=== PATIENT | female | born 2000 | race African-American/Black ===

== ENCOUNTER 2019-09-06 23:11 | Emergency (ER) | payer BC, MEDICAID, SELFPAY ==
[2019-09-06 23:13] VITALS: BP 135/59; PULSE 94; RESP 19; TEMP 36.6; O2SAT 100
[2019-09-06 23:18] VITALS: BP 138/59; PULSE 94; RESP 16; TEMP 36.6; O2SAT 100
[2019-09-07] MEDS: HYDROMORPHONE HCL 1 MG/ML INJ IM (00:21)
[2019-09-07] MEDS: ONDANSETRON HCL ODT 4 MG TABLET PO (00:22)
[2019-09-07] MEDS: LIDO 1%/EPINEPHRINE 1:100,000 20 ML VIAL INFILTRATE (00:34)
--- NOTE | 2019-09-07 01:17 | ED.WOUNDLAC ---
HPI - Wound/Laceration General Chief Complaint: Wound/Laceration Stated Complaint: boil Time Seen by Provider: 09/06/19 23:59 Source: patient Mode of arrival: ambulatory Limitations: no limitations History of Present Illness HPI narrative: This patient is a 19 yo female with h/o pilondial cyst who presents with c/o left buttock boil. She noticed pain and swelling to left buttock on Wednesday . She was seen at Urgent care on Wednesday and she was started on antibiotics . She was seen by her PCP who prescribed a topical. PAtient has continued to have significant pain and swelling so she has come to ER. She denies nausea, vomiting, fever or chills. She has no drainage. Related Data Allergies Allergy/AdvReac Type Severity Reaction Status Date / Time No Known Drug Allergies Allergy Unknown Other Verified 09/06/19 23:24 Review of Systems Review of Systems: All systems reviewed & are unremarkable except as noted in HPI and below Constitutional: Constitutional: Denies chills, Denies fever(s) and Denies weakness Gastrointestinal: Gastrointestinal: Denies nausea PMFSH Past Medical History Medical History (Updated 09/07/19 @ 01:27 by Stacy French MD) Pilonidal cyst Surgical History Surgical History (Updated 09/07/19 @ 01:22 by Stacy French MD) History of knee surgery Social History Social History Gender identity (if verbalized by the patient): Female Exam Const: General: alert Orientation/consciousness: patient oriented x3 Limitations: other limitations (moderated distress due to pain) HENMT: Head: normocephalic and atraumatic Eyes: EOM: EOMs intact bilaterally Resp: Effort & Inspection: normal respiratory effort Auscultation: clear to auscultation bilaterally Cardio: Rate: regular rate Rhythm: regular rhythm Skin: Other: left crease of buttock with area 3 x 5 cm tenderness, swelling and fluctuance, no drainage, no erythema Neuro: General: patient oriented x3 and moves all extremities Course Reevaluation(s) Reevaluation #1: Patient states she feels better after I and D. I Discussed discharge plan and treatment. She will continue on her antibiotics. Date: 09/07/19 Time: 01:24 Vital Signs Vital signs: Vital Signs Temperature 97.8 F 09/06/19 23:13 Pulse Rate 94 09/06/19 23:13 Respiratory Rate 19 09/06/19 23:13 Blood Pressure 135/59 L 09/06/19 23:13 Pulse Oximetry 100 09/06/19 23:13 Temperature 98.2 F 09/07/19 02:21 Pulse Rate 71 09/07/19 02:21 Respiratory Rate 18 09/07/19 02:21 Blood Pressure 128/71 09/07/19 02:21 Pulse Oximetry 99 09/07/19 02:21 Procedures Abscess I/D left buttock: Date of Incision: 09/07/19 Time of Incision: 01:25 Side (if applicable): left Local Anesthetic: lidocaine 1%, with epi and none (LET) Amount of anesthesia used (mL): 5 Technique: incised with #11 blade and probed loculations Amount of fluid expressed (mL): 5 Irrigation: Yes Packing used?: iodoform I&D Results: Pus and Blood Complications: pain Abcess I&D Additional Comments: swelling decreased significantly after I and D Discharge Plan Discharge Clinical Impression: Sacrococcygeal pilonidal cyst with abscess Patient Disposition: Home, Self-Care Condition: Stable Instructions: Antibiotic Form, Pilonidal Cyst (ED), Abscess Incision and Drainage (DC) Additional Instructions: Today you were evaluated for a infected cyst. Your packing will need to be removed in 3 days. Continue taking your antibiotics. Prescriptions: New hydrocodone-acetaminophen 5-325 mg tablet 1 tablet PO Q6H PRN (Reason: pain) Qty: 7 RF: 0 Follow-up/Referrals: Jimmy Sanderson MD [Physician] - Caden,MD Usama [Primary Care Provider] - Stand Alone Forms: Work/School Release IP Discharge Date/Time: 09/07/19 02:23
[2019-09-07 02:21] VITALS: BP 128/71; PULSE 71; RESP 18; TEMP 36.8; O2SAT 99
== END 2019-09-07 02:23 | disposition home or self-care (01) ==
PROVIDERS: Emergency Provider General Practice; PCP Pediatrics
DX: L05.01 Pilonidal cyst with abscess (principal)
CPT/HCPCS: 10080; 96372; 99283; A9270; J1170

== ENCOUNTER 2020-05-01 16:52 | Emergency (ER) | payer BC, MEDICAID, OTHER, SELFPAY ==
--- NOTE | ~2020-05-01 | XR_ITS ---
EXAMINATION: XR tibia fibula LT 2V INDICATION: Left leg pain TECHNIQUE: Two views of the left tibia and fibula are obtained on four radiographs. COMPARISON: None available FINDINGS: Intramedullary riri is present in the tibia. There is no acute fracture, dislocation, or sub luxation. Bone alignment at the knee and ankle is normal. IMPRESSION: 1. No acute osseous abnormality. Reviewed, dictated and finalized at location A. [employer]
[2020-05-01 17:38] VITALS: BP 122/68; PULSE 90; RESP 16; TEMP 36.6; O2SAT 100
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
== END 2020-05-01 18:26 | disposition home or self-care (01) ==
PROVIDERS: Emergency Provider Emergency Medicine; PCP Pediatrics
DX: S16.1XXA Strain of muscle, fascia and tendon at neck level, initial encounter (principal); V49.60XA Unspecified car occupant injured in collision with unspecified motor vehicles in traffic accident, initial encounter
CPT/HCPCS: 73590; 81025; 99283

== ENCOUNTER 2020-10-04 22:28 | Emergency (ER) | payer BC, MEDICAID, SELFPAY ==
[2020-10-04 22:30] VITALS: BP 125/74; PULSE 96; RESP 12; TEMP 37.6; O2SAT 100
[2020-10-04 22:44] VITALS: BP 115/72; PULSE 96; RESP 18; TEMP 37.9; O2SAT 100
[2020-10-04 22:49] VITALS: BP 115/72; PULSE 95; RESP 18; TEMP 37.9; O2SAT 100
--- NOTE | 2020-10-04 22:56 | PC.NURSE ---
Pt presents to ED with complaints of cold symptoms since yesterday. Pt states mom is a sick contact. Pt complaining of abdominal pain, sore throat, and stuffy nose. Pt also complains of chills. Generalized pain rated 6/10 at this time. Denies chest pain, sob, fever, and nvd. Pt alert and oriented x4 and in no obvious distress with stable vitals. Pt states she has been taking amoxicillin, dayquil and nyquil to treat symptoms. Pt resting on cart with call button and personal items within reach. Pt advised to press call button for assistance.
--- NOTE | 2020-10-04 23:22 | PC.NURSE ---
Pt resting on cart with stable vitals and in no obvious distress. Pt alert and oriented x4 and advised to press call button for assistance.
--- NOTE | 2020-10-04 23:40 | PC.NURSE ---
Blood and covid specimens collected and sent to lab. Pt resting on cart in its lowest position with call button and personal items within reach. Pt advised to press call button for assistance.
--- NOTE | 2020-10-04 23:41 | ED.URI ---
HPI - URI/Sore Throat General Chief Complaint: Upper Respiratory Infection Stated Complaint: I have a cold or something Time Seen by Provider: 10/04/20 22:49 Mode of arrival: ambulatory Limitations: no limitations History of Present Illness HPI Narrative: 20-year-old female Here with a number of complaints Including stuffy nose, feeling cold, scratchy throat, achiness, ear fullness, as well as constipation She does not have a fever or productive cough, she does not have urinary symptoms, she does not have diarrhea Her mom is sick with similar symptoms Patient has not received a Covid vaccination Related Data Home Medications Medication Instructions Recorded Confirmed lisdexamfetamine [Vyvanse] mg 05/01/20 oxycodone-acetaminophen 05/01/20 Allergies Allergy/AdvReac Type Severity Reaction Status Date / Time No Known Drug Allergies Allergy Unknown Other Verified 05/01/20 17:47 Review of Systems Review of Systems: All systems reviewed & are unremarkable except as noted in HPI and below Constitutional: Constitutional: Reports chills, Reports fatigue and Denies headache(s) Eyes: Eyes: Reports no additional eye complaints and Denies change in vision ENT: Denies headache(s), Reports nasal congestion and Reports sore throat Cardiovascular: Cardiovascular: Denies chest pain and Denies dyspnea Respiratory: Respiratory: Denies cough and Denies dyspnea Gastrointestinal: Gastrointestinal: Reports abdominal pain, Denies diarrhea and Denies vomiting Genitourinary: Genitourinary: Denies urinary frequency and Denies dysuria Musculoskeletal: Musculoskeletal: Reports myalgias, Denies deformity, Denies arthralgias, Denies joint swelling and Denies numbness Integumentary/Breasts: Skin/Breast: Denies rash and Denies wounds Neurologic: Denies headache(s), Denies focal weakness and Denies numbness Psychiatric: Psychiatric: Reports no additional psychiatric complaints Endocrine: Endocrine: Reports no additional endocrine complaints Hematologic/Lymphatic: Hematologic/Lymphatic: Reports no additional hematologic/lymphatic complaints Allergic/Immunologic: Allergic/Immunologic: Reports no additional allergic/immunologic complaints [facility] Past Medical History Medical History (Updated 10/05/20 @ 00:34 by Jon Jones MD) Pilonidal cyst Surgical History Surgical History (Updated 09/07/19 @ 01:22 by Stacy French MD) History of knee surgery Social History Social History Gender identity (if verbalized by the patient): Female Exam Const: General: cooperative, healthy appearing, no acute distress and alert Orientation/consciousness: patient oriented x3 (alert) HENMT: Head: normocephalic and atraumatic Ears: external ears normal and TM's normal bilaterally General nose exam: no epistaxis Mouth: Yes Normal oral and palatal mucosa present (No exudate) Eyes: Conjunctivae: conjunctivae normal EOM: EOMs intact bilaterally Neck: Neck: normal visual inspection, supple and no JVD Other: [place] anterior cervical lymph nodes bilaterally that are mildly tender Resp: Effort & Inspection: normal respiratory effort Auscultation: clear to auscultation bilaterally and other (BS =) GI: GI Palp: Yes Soft to palpation and No Tenderness to palpation present (GI) Skin: General skin exam: normal color and no rashes or lesions noted Neuro: General: patient oriented x3 (alert) and moves all extremities Speech: normal speech Psych: Affect: normal affect Course Vital Signs Vital signs: Vital Signs Temperature 37.6 C H 10/04/20 22:30 Pulse Rate 96 10/04/20 22:30 Respiratory Rate 12 10/04/20 22:30 Blood Pressure 125/74 10/04/20 22:30 Pulse Oximetry 100 10/04/20 22:30 Temperature 37.9 C H 10/04/20 22:49 Pulse Rate 95 10/04/20 22:49 Respiratory Rate 18 10/04/20 22:49 Blood Pressure 115/72 10/04/20 22:49 Pulse Oximetry 100 10/04/20 22:49 MDM - URI/Sore Throat La
[2020-10-04 23:48] LABS: Basophils Percent Auto 0.5 % (0.2-1.2); Eosinophils Absolute Auto 0.1 K/mm3 (0-0.3); Eosinophils Percent Auto 1.4 % (0-4.4); Hematocrit 36.6 % (37.0-47.0); Hemoglobin 11.9 g/dL (12.0-15.0); Immature Granulocyte Absolute 0.01 K/mm3 (0.00-0.031); Immature Granulocyte Percent A 0.2 % (0-0.5); Lymphocytes Percent Auto 12.7 % (18.3-44.2); Mean Corpuscular HGB Conc 32.5 g/dl (32-36); Mean Corpuscular Volume 92.2 fl (80-100); Monocytes Absolute Auto 0.5 K/mm3 (0.1-0.6); Monocytes Percent Auto 7.8 % (2.6-8.5); Neutrophils Absolute Auto 4.9 K/mm3 (1.3-6.7); Neutrophils Percent Auto 77.4 % (45.5-73.1); Platelet Count Result 202 k/mm3 (150-375); Red Blood Count 3.97 M/mm3 (4.2-5.4); Red Cell Distribution Width 12.7 % (11.5-14.5); White Blood Count 6.3 K/mm3 (4.5-10.0)
--- NOTE | 2020-10-04 23:53 | PC.NURSE ---
covid swab completed.
--- NOTE | 2020-10-05 00:02 | PC.NURSE ---
Covid specimen negative. Sample sent to lab.
[2020-10-05 00:21] LABS: Monoscreen Negative (Negative); Negative Monotest Control Negative (Negative); Positive Monotest Control Positive (Positive)
[2020-10-05 00:32] VITALS: BP 118/70; PULSE 95; RESP 18; TEMP 38.5; O2SAT 99
--- NOTE | 2020-10-05 00:36 | PC.NURSE ---
EDMD notified of pt temp of 101.3 and gives verbal order for 1g of tylenol.
[2020-10-05] MEDS: ACETAMINOPHEN 500 MG TABLET 1000 MG PO (00:43)
--- NOTE | 2020-10-05 00:43 | PC.NURSE ---
EDMD presented to bedside to update pt on poc and all questions and concerns addressed.
[2020-10-05 19:38] LABS: SARS-CoV-2 RNA PCR Negative
== END 2020-10-05 00:48 | disposition home or self-care (01) ==
PROVIDERS: Emergency Provider Emergency Medicine; PCP Pediatrics
DX: J06.9 Acute upper respiratory infection, unspecified (principal); Z20.822 Contact with and (suspected) exposure to COVID-19
CPT/HCPCS: 36415; 85025; 86308; 87081; 87880; 99283; A9270; C9803; U0003; U0005

== ENCOUNTER 2021-05-12 23:41 | Emergency (ER) | payer BC, MEDICAID, SELFPAY ==
[2021-05-12 23:47] VITALS: BP 119/95; PULSE 93; RESP 22; TEMP 36.2; O2SAT 100
[2021-05-13 00:17] VITALS: BP 125/77; O2SAT 100
[2021-05-13 00:18] VITALS: O2SAT 100
[2021-05-13] MEDS: HYDROcodone/acetaminophen (*CRX) 5-325 MG TABLET 1 TAB PO (00:41)
[2021-05-13] MEDS: POVIDONE-IODINE 10% SOLUTION 118 ML BOTTLE TOPICAL (00:42)
[2021-05-13] MEDS: ONDANSETRON HCL ODT 4 MG TABLET PO (00:42)
--- NOTE | 2021-05-13 00:48 | ED.SKABFB ---
HPI - Skin/Abscess/Foreign Bdy General Chief complaint: Skin/Abscess/Foreign Body Stated complaint: boil on buttock Time Seen by Provider: 05/13/21 00:16 Source: patient and RN notes reviewed Mode of arrival: ambulatory Limitations: no limitations History of Present Illness HPI narrative: This is a 21 year old female with history of frequent pilonidal cyst buttock who presents for evaluation of left buttock abscess. She developed abscess 3 days ago. She was evaluated by her PCP and started on Bactrim. She reports today the cyst was larger and it ruptured. She thinks another developed and she is having pain. She has difficulty sitting due to her pain. She denies fever, nausea, vomiting. She took ibuprofen this afternoon around 2 pm. Related Data Home Medications Medication Instructions Recorded Confirmed lisdexamfetamine [Vyvanse] mg 05/01/20 oxycodone-acetaminophen 05/01/20 Allergies Allergy/AdvReac Type Severity Reaction Status Date / Time No Known Drug Allergies Allergy Unknown Other Verified 05/01/20 17:47 Review of Systems Review of Systems: All systems reviewed & are unremarkable except as noted in HPI and below PMFSH Past Medical History Medical History Pilonidal cyst Surgical History Surgical History History of knee surgery Social History Social History (Updated 05/13/21 @ 02:02 by Stacy French MD) Smoking status: Never smoker Gender identity (if verbalized by the patient): Female Exam Const: General: alert Orientation/consciousness: patient oriented x3 Other: patient laying on her stomach Neck: Neck: normal visual inspection Resp: Effort & Inspection: normal respiratory effort and no retractions Auscultation: clear to auscultation bilaterally : Other: cyst with area of fluctuance to crease of right buttock, no drainage, no open wound, no erythema Skin: General skin exam: normal color Neuro: General: patient oriented x3, moves all extremities and CN's II-XI intact bilaterally Course Reevaluation(s) Reevaluation #1: I performed I and D on patient. She will be discharged with pain medications. Date: 05/13/21 Time: 01:28 Vital Signs Vital signs: Vital Signs Temperature 97.2 F L 05/12/21 23:47 Pulse Rate 93 05/12/21 23:47 Respiratory Rate 22 H 05/12/21 23:47 Blood Pressure 119/95 H 05/12/21 23:47 Pulse Oximetry 100 05/12/21 23:47 Temperature 97.2 F L 05/12/21 23:47 Pulse Rate 93 05/12/21 23:47 Respiratory Rate 22 H 05/12/21 23:47 Blood Pressure 125/77 05/13/21 00:17 Pulse Oximetry 100 05/13/21 00:18 Procedures Abscess I/D other: Date of Incision: 05/13/21 Time of Incision: 01:29 Side (if applicable): right (buttock pilonidal cyst) Local Anesthetic: lidocaine 1% and with epi Amount of anesthesia used (mL): 2 Technique: incised with #11 blade Amount of fluid expressed (mL): 3 Irrigation: Yes Packing used?: iodoform I&D Results: Pus Complications: pain and bleeding Discharge Plan Discharge Clinical Impression: Cyst, pilonidal, with abscess Patient Disposition: Home, Self-Care Condition: Stable Instructions: Antibiotic Form, Pilonidal Cyst (ED) Additional Instructions: Today you were treated for an infected cyst. I left packing in your would to allow it drain. Remove packing in 48 hours. You may take a shower. You may need to see a surgeon for recurrent cyst. Follow up with your primary care provider. Prescriptions: New oxycodone-acetaminophen [Percocet] 5-325 mg tablet 1 tablet PO Q6H PRN (Reason: pain) Qty: 7 RF: 0 No Action oxycodone-acetaminophen 5-325 mg tablet RF: 0 Vyvanse 50 mg capsule RF: 0 cyclobenzaprine 10 mg tablet 10 mg PO TID PRN (Reason: muscle spasm) Qty: 20
--- NOTE | 2021-05-13 02:22 | PC.NURSE ---
Pt given extra 4x4 gauze and tape to use at home if needed
== END 2021-05-13 02:24 | disposition home or self-care (01) ==
PROVIDERS: Emergency Provider General Practice; PCP Pediatrics
DX: L05.01 Pilonidal cyst with abscess (principal)
CPT/HCPCS: 10061; 10080; 99283; A9270

== ENCOUNTER 2022-03-03 17:50 | Emergency (ER) | payer BC, MEDICAID, SELFPAY ==
--- NOTE | ~2022-03-03 | XR_ITS ---
EXAMINATION: XR chest 1V Exam Date/Time: 03/03/2022 18:20 CDT HISTORY: fever; seizure sx; non smoker Comparison: 03/13/2010. RESULT: Lines, tubes, and devices: None. Lungs and pleura: Clear. Cardiomediastinal silhouette: Stable. Other: No acute osseous or upper abdominal finding. IMPRESSION: No acute cardiopulmonary process. Reviewed, dictated and finalized at location K.
--- NOTE | ~2022-03-03 | CT_ITS ---
EXAMINATION: CT brain wo con DATE: 03/03/2022 18:22 INDICATION: seizure . TECHNIQUE: Computed tomography (CT) of the head was performed without intravenous contrast. The mA wa s adjusted according to patient size. Iterative reconstruction technique was employed. The dose-lengt h product was 605.33 mGy-cm. COMPARISON: 01/30/2016 FINDINGS: No acute intracranial hemorrhage or extra-axial fluid collection. No hydrocephalus, mass, or herniation. No acute ischemic infarct. Unremarkable dural venous sinus attenuation. No acute osseous abnormality. The aerated spaces are clear. IMPRESSION: No acute intracranial process. Reviewed, dictated and finalized at location K.
[2022-03-03 18:00] VITALS: BP 137/73; PULSE 107; RESP 18; TEMP 38.8; O2SAT 98
[2022-03-03] MEDS: LORazepam INJ (*CRX) 2 MG/ML VIAL 1 MG IV PUSH (18:07)
--- NOTE | 2022-03-03 18:17 | ECG_ITS ---
Measurements Intervals [place] Rate: 103 P: 51 [place]: 108 QRS: 49 QRSD: 86 T: 42 QT: 316 QTc: 414 Interpretive Statements SINUS TACHYCARDIA WITH SHORT WI INTERVAL POSSIBLE LEFT ATRIAL ENLARGEMENT NONSPECIFIC T-WAVE ABNORMALITY- ANTERIOR LEADS BORDERLINE ECG NO PREVIOUS ECG AVAILABLE FOR COMPARISON Electronically Signed On 03-03-2022 21:04:47 CDT by Aron Donahue D.O.
[2022-03-03 18:18] LABS: Glucose Point of Care 116 mg/dl (65-105)
[2022-03-03 18:28] LABS: Basophils Percent Auto 0.3 % (0.2-1.2); Eosinophils Percent Auto 0.1 % (0-4.4); Hematocrit 37.4 % (37.0-47.0); Hemoglobin 12.1 g/dL (12.0-15.0); Immature Granulocyte Absolute 0.04 K/mm3 (0.00-0.031); Immature Granulocyte Percent A 0.4 % (0-0.5); Lymphocytes Absolute Auto 0.33 K/mm3 (0.9-3.2); Lymphocytes Percent Auto 3.6 % (18.3-44.2); Mean Corpuscular HGB Conc 32.4 g/dl (32-36); Mean Corpuscular Hemoglobin 30.3 pg (26-34); Mean Corpuscular Volume 93.5 fl (80-100); Monocytes Absolute Auto 0.4 K/mm3 (0.1-0.6); Monocytes Percent Auto 4.9 % (2.6-8.5); Neutrophils Absolute Auto 8.2 K/mm3 (1.3-6.7); Neutrophils Percent Auto 90.7 % (45.5-73.1); Platelet Count Result 221 k/mm3 (150-375); Red Cell Distribution Width 12.4 % (11.5-14.5); White Blood Count 9.1 K/mm3 (4.5-10.0)
[2022-03-03] MEDS: SODIUM CHLORIDE 0.9% IV 1,000 ML 999 ML (18:32)
[2022-03-03 18:38] LABS: Lactic Acid Reflex 1.8 mmol/L (0.7-2.0)
[2022-03-03] MEDS: cefTRIAXone 2 GM in SODIUM CHLORIDE 0.9% IV 100 ML 200 ML IVPB (18:38)
[2022-03-03 18:40] LABS: Alanine Aminotransferase 20 U/L (6-35); Albumin Level 4.5 g/dL (3.5-5.1); Alkaline Phosphatase 41 U/L (38-126); Anion Gap 12 mmol/L (8-16); Aspartate Amino Transferase 28 U/L (14-36); Bilirubin,Total 0.7 mg/dL (0.2-1.3); Blood Urea Nitrogen 10 mg/dL (7-17); CRP 0.5 mg/dL (<1.0); Calcium 8.8 mg/dL (8.4-10.2); Carbon Dioxide 24 mmol/L (22-30); Chloride 99 mmol/L (98-107); Estimated Glomerular Filt Rate > 60; Glucose 126 mg/dL (65-110); INR 1.1; Potassium 3.4 mmol/L (3.4-5.0); Prothrombin Time 13.7 Seconds (11.1-14.7); Sodium 135 mmol/L (137-145)
[2022-03-03 18:41] LABS: Partial Thromboplastin Time 26.7 SECONDS (22.3-36.8)
--- NOTE | 2022-03-03 18:52 | ED.SEIZURE ---
HPI - Seizure General Chief Complaint: Seizure Stated Complaint: COVID/FLU S/SX Time Seen by Provider: 03/03/22 18:01 History of Present Illness HPI Narrative: Pt reported to triage with complaint of flu like symptoms and then looked unsteady and was lowered to floor and had a seizure (tonic clonic). Seizure lasted a couple of minutes and pt had a post ictal period afterward. Aunt arrived and said patient has a history of seizures in past but has not taken meds for awhile. Pt has had fever and runny nose for a couple of days. Related Data Home Medications Medication Instructions Recorded Confirmed lisdexamfetamine 50 mg capsule mg 05/01/20 (Vyvanse) oxycodone-acetaminophen 5 mg-325 05/01/20 mg tablet Allergies Allergy/AdvReac Type Severity Reaction Status Date / Time No Known Drug Allergies Allergy Unknown Other Verified 05/01/20 17:47 Review of Systems Review of Systems: All systems reviewed & are unremarkable except as noted in HPI and below PMFSH Past Medical History Medical History Pilonidal cyst Surgical History Surgical History History of knee surgery Social History Social History (Updated 05/13/21 @ 02:02 by Stacy French MD) Smoking status: Never smoker Gender identity (if verbalized by the patient): Female Exam Const: General: healthy appearing Nutritional Appearance: well nourished Orientation/consciousness: patient oriented x3 Limitations: altered mental status HENMT: Head: normal to inspection Eyes: Conjunctivae: conjunctivae normal Pupils: Equal, round and reactive pupils present EOM: EOMs intact bilaterally Neck: Neck: normal visual inspection, no lymphadenopathy and no meningeal signs Chest: Chest palpation & inspection: normal inspection of the chest Resp: Effort & Inspection: normal respiratory effort Auscultation: clear to auscultation bilaterally Cardio: Rate: regular rate Rhythm: regular rhythm GI: GI Palp: Yes Soft to palpation Auscultation: normal bowel sounds Skin: General skin exam: normal color Rashes: no rashes Neuro: General: patient oriented x3, moves all extremities, no meningeal signs, no focal motor deficits and CN's II-XI intact bilaterally Cranial nerves: Yes Nystagmus not present Speech: normal speech Other: all this exam after she became alert Extrem: General: normal to inspection and no clubbing, cyanosis or edema Psych: Appearance: grossly normal Mental Status: mental status grossly normal Affect: normal affect Attitude: cooperative Course Vital Signs Vital signs: Vital Signs Temperature 101.9 F H 03/03/22 18:00 Pulse Rate 107 H 03/03/22 18:00 Respiratory Rate 18 03/03/22 18:00 Blood Pressure 137/73 03/03/22 18:00 Pulse Oximetry 98 03/03/22 18:00 Oxygen Delivery Room Air 03/03/22 18:00 Temperature 100.2 F H 03/03/22 20:38 Pulse Rate 105 H 03/03/22 20:38 Respiratory Rate 18 03/03/22 20:38 Blood Pressure 120/55 L 03/03/22 20:38 Pulse Oximetry 97 03/03/22 20:38 Oxygen Delivery Room Air 03/03/22 18:00 MDM - Seizure Lab Data Result diagrams: 03/03/22 18:20 03/03/22 18:20 Labs: Lab Results 03/03/22 03/03/22 03/03/22 Range/Units 18:14 18:20 18:20 WBC 9.1 (4.5-10.0) K/mm3 RBC 4.00 L (4.2-5.4) M/mm3 Hgb 12.1 (12.0-15.0) g/dL Hct 37.4 (37.0-47.0) % MCV 93.5 (80-100) fl MCH 30.3 (26-34) pg MCHC 32.4 (32-36) g/dl RDW 12.4 (11.5-14.5) % Plt Count 221 (150-375) k/mm3 MPV 10.0 (7.4-10.4) fl Immature Gran % (Auto) 0.4 (0-0.5) % Neut % (Auto) 90.7 H (45.5-73.1) % Lymph % (Auto) 3.6 L (18.3-44.2) % [place] % (Auto) 4.9 (2.6-8.5) % Eos % (Auto) 0.1 (0-4.4) % Baso % (Auto) 0.3 (0.2-1.2) % Lymph # (Auto) 0.33 L (0.9-3.2) K/mm3 [place] # (Auto) 0.4 (0.1-0.6
[2022-03-03 19:18] VITALS: BP 135/70; PULSE 104; RESP 16; TEMP 39.6; O2SAT 100
[2022-03-03 19:18] LABS: Influenza A QL RT-PCR Positive (Negative); Influenza B QL RT-PCR Negative (Negative); SARS-CoV-2 RNA PCR Negative
[2022-03-03] MEDS: ACETAMINOPHEN 500 MG TABLET 1000 MG PO (19:24)
[2022-03-03 20:38] VITALS: BP 120/55; PULSE 105; RESP 18; TEMP 37.9; O2SAT 97
== END 2022-03-03 20:47 | disposition home or self-care (01) ==
PROVIDERS: Emergency Provider Emergency Medicine; PCP Pediatrics
DX: G40.909 Epilepsy, unspecified, not intractable, without status epilepticus (principal); J10.1 Influenza due to other identified influenza virus with other respiratory manifestations; Z20.822 Contact with and (suspected) exposure to COVID-19
CPT/HCPCS: 36415; 70450; 71045; 80053; 82948; 83605; 85025; 85610; 85730; 86140; 87040; 87502; 93005; 96361; 96365; 96375; 99284; A9270; J0696; J2060; J7030; U0003; U0005

== ENCOUNTER 2022-11-09 15:21 | Inpatient (IN) | payer BC, MEDICAID, SELFPAY ==
[2022-11-09] VITALS (72 sets, daily range): BP systolic 82–128; BP diastolic 42–117; PULSE 77–170; RESP 6–26; TEMP 36.1–36.9; O2SAT 94–100; BMI 21.2
--- NOTE | ~2022-11-09 | US_ITS ---
EXAMINATION: US abdomen limited DATE: 11/09/2022 18:16 INDICATION: Right upper quadrant abdominal pain. TECHNIQUE: Multiple grayscale and Doppler ultrasound images of the abdomen were obtained. COMPARISON: CT abdomen and pelvis 11/09/2022 FINDINGS: The visualized portions of the head, body, and tail of the pancreas are normal. The liver i s normal without focal lesion. There is antegrade flow in main portal vein. The gallbladder is normal in size. No gallstones or sonographic Long sign. Gallbladder wall thickening is noted. The common duct is normal and measures 5 mm. IMPRESSION: 1. Gallbladder wall thickening, likely interstitial edema. Reviewed, dictated and finalized at location E.
--- NOTE | ~2022-11-09 | CT_ITS ---
EXAMINATION: CT abdomen pelvis w con DATE: 11/09/2022 17:20 INDICATION: Right flank pain. Nausea and vomiting. TECHNIQUE: Computed tomography (CT) of the abdomen and pelvis was performed with 100 mL Omnipaque 350 intravenous contrast. Automated exposure control and iterative reconstruction technique were employe d. The dose-length product was 778.27 mGy-cm. COMPARISON: None. FINDINGS: The visualized portions of the lung bases demonstrate mild atelectasis. No pleural effusion . The heart size is normal. No pericardial effusion. There is periportal edema in the liver. The gall bladder is normal in size. Gallbladder wall thickening is likely secondary to interstitial edema. The spleen, pancreas, adrenal glands, and kidneys are normal. There are no dilated loops of bowel. The a ppendix is normal. There are no pathologically enlarged lymph nodes. There is no free intraperitoneal fluid. There is mild lumbar spondylosis. IMPRESSION: 1. Periportal edema in the liver. 2. Gallbladder wall thickening, likely interstitial edema. Reviewed, dictated and finalized at location E.
--- NOTE | ~2022-11-09 | XR_ITS ---
EXAMINATION: XR chest 1V portable DATE: 11/09/2022 15:57 INDICATION: Tachycardia. Atrial fibrillation. TECHNIQUE: A single frontal view of the chest was obtained. COMPARISON: Chest single view 03/03/2022 FINDINGS: There is no pneumonia, pleural effusion, or pneumothorax. The heart size is normal. IMPRESSION: 1. No acute cardiopulmonary disease. Reviewed, dictated and finalized at location E.
--- NOTE | 2022-11-09 15:28 | ECG_ITS ---
Measurements Intervals [place] Rate: 156 P: [place]: 0 QRS: 49 QRSD: 81 T: 0 QT: 128 QTc: 206 Interpretive Statements ATRIAL FIBRILLATION WITH RAPID VENTRICULAR RESPONSE INCOMPLETE RIGHT BUNDLE BRANCH BLOCK NONSPECIFIC ST & T-WAVE ABNORMALITY- ANTEROLAT/INF LEADS BASELINE ARTIFACT- II, III, AVR, AVL, AVF ABNORMAL ECG COMPARED TO ECG 03/03/2022 18:08:01 ATRIAL FIBRILLATION NOW PRESENT Electronically Signed On 11-09-2022 15:46:32 CDT by Aron Donahue D.O.
[2022-11-09 15:50] LABS: Hematocrit 38.7 % (37.0-47.0); Hemoglobin 12.2 g/dL (12.0-15.0); Mean Corpuscular HGB Conc 31.5 g/dl (32-36); Mean Corpuscular Hemoglobin 30.2 pg (26-34); Mean Corpuscular Volume 95.8 fl (80-100); Mean Platelet Volume 9.8 fl (7.4-10.4); Platelet Count Result 236 k/mm3 (150-375); Red Blood Count 4.04 M/mm3 (4.2-5.4); Red Cell Distribution Width 12.9 % (11.5-14.5); White Blood Count 7.1 K/mm3 (4.5-10.0)
[2022-11-09 15:51] LABS: Basophils Absolute Auto 0.1 K/mm3 (0.0-0.1); Basophils Percent Auto 0.7 % (0.2-1.2); Eosinophils Percent Auto 0.1 % (0-4.4); Immature Granulocyte Absolute 0.02 K/mm3 (0.00-0.031); Immature Granulocyte Percent A 0.3 % (0-0.5); Lymphocytes Absolute Auto 1.52 K/mm3 (0.9-3.2); Lymphocytes Percent Auto 21.3 % (18.3-44.2); Monocytes Absolute Auto 0.3 K/mm3 (0.1-0.6); Monocytes Percent Auto 4.6 % (2.6-8.5); Neutrophils Absolute Auto 5.2 K/mm3 (1.3-6.7)
[2022-11-09] MEDS: SODIUM CHLORIDE 0.9% IV 1,000 ML 999 ML IV CONT ×2 (15:54→18:20)
[2022-11-09] MEDS: ADENOSINE IV SOLN 6 MG/2 ML VIAL 12 MG IV PUSH (15:55)
[2022-11-09 16:00] LABS: Alanine Aminotransferase 19 U/L (6-35); Albumin Level 4.2 g/dL (3.5-5.1); Alkaline Phosphatase 34 U/L (38-126); Anion Gap 5 mmol/L (8-16); Aspartate Amino Transferase 24 U/L (14-36); Bilirubin,Total 0.3 mg/dL (0.2-1.3); Blood Urea Nitrogen 12 mg/dL (7-17); Calcium 8.6 mg/dL (8.4-10.2); Carbon Dioxide 29 mmol/L (22-30); Chloride 105 mmol/L (98-107); Estimated CRCL calculation 103 ml/min; Estimated Glomerular Filt Rate > 60; Glucose 106 mg/dL (65-110); Magnesium 1.7 mg/dL (1.6-2.3); Potassium 4.1 mmol/L (3.4-5.0); Sodium 139 mmol/L (137-145)
[2022-11-09] MEDS: METOPROLOL TARTRATE INJ 5 MG/5 ML VIAL (16:05)
[2022-11-09] MEDS: SODIUM CHLORIDE 0.9% IV 1,000 ML 999 ML (16:06)
--- NOTE | 2022-11-09 16:08 | ED.NAVMDI ---
HPI - Nausea/Vomiting/Diarrhea General Chief complaint: Nausea/Vomiting/Diarrhea Stated complaint: n/v, dizzy, SVT History of Present Illness HPI Narrative: This is a 22-year-old female with past history of ADHD and from [place] (where she works), brought in by EMS for nausea and vomiting and palpitations for the past day. She states she has had multiple episodes of vomiting and loose stools throughout the day. She denies chest pain, shortness of breath, falls or loss of consciousness. EMS reports they gave the patient 4 of Zofran, attached to the monitor and noted heart rate in the 170s labeled as SVT. EMS started IV fluids with improvement to the 140s. No other medications were given. Related Data Home Medications Medication Instructions Recorded Confirmed lisdexamfetamine 50 mg capsule mg 05/01/20 (Vyvanse) oxycodone-acetaminophen 5 mg-325 05/01/20 mg tablet Allergies Allergy/AdvReac Type Severity Reaction Status Date / Time No Known Drug Allergies Allergy Unknown Other Verified 05/01/20 17:47 Review of Systems Review of Systems: CONSTITUTIONAL: Denies fever, chills, or sweats. CARDIOVASCULAR: Palpitations denies chest pain, or edema. RESPIRATORY: Denies cough or dyspnea. GASTROINTESTINAL: Nausea, vomiting and diarrhea denies abdominal pain GENITOURINARY: Denies dysuria or hematuria. SKIN: Denies rash or itching. MUSCULOSKELETAL: Denies back pain, joint pain, or myalgia. NEUROLOGIC: Denies headache, numbness, dizziness, or weakness. PSYCHIATRIC: Denies anxiety or depression. PMFSH Past Medical History Medical History (Updated 11/09/22 @ 19:01 by Tereso Mistry MD) ADHD Pilonidal cyst Surgical History Surgical History History of knee surgery Social History Social History Smoking status: Never smoker Gender identity (if verbalized by the patient): Female Exam Narrative: GENERAL: Well-developed, well-nourished, and in no acute distress. HEAD: Normocephalic, atraumatic. EYES: PERRLA and EOMI. CHEST: Clear to auscultation. No respiratory distress. No wheezes rales or rhonchi HEART: Tachycardic with regular rhythm. No murmur heard. Normal peripheral pulses. ABDOMEN: Soft, nontender, nondistended, normal active bowel sounds. EXTREMITIES: Normal range of motion. No edema. SKIN: Warm, dry, no rash. NEURO: No focal deficits. Alert and oriented x3. PSYCH: Normal mood and affect. Course Course Emergency Course: 15:57 - 12mg of adenosine was given IV for heart rate in the 160s. There is poor baseline, though what appear to be P waves. I suspect sinus tachycardia as opposed to A-fib with RVR. Will give 5 metoprolol and IV fluids to reduce heart rate 16:00 - Potassium 4.1. Calcium 8.6 and magnesium 1.7. We will give a gram of calcium and magnesium in addition to fluids. CBC not concerning for anemia. 16:48 - The patient is complaining of right upper quadrant pain now. Will obtain CT abdomen pelvis. 17:28 - My review of the patient's CT abdomen pelvis is concerning for pericholecystic fluid. I performed a bedside ultrasound that demonstrates small amount of fluid and what appears to be sludge. Will obtain formal right upper quadrant ultrasound. The patient's heart rate remains elevated to the 130-150s despite metoprolol, pain medications and 3 L of fluid. 18:45 - Right upper quadrant ultrasound not concerning for cholecystitis or cholelithiasis and shows changes consistent with gallbladder interstitial edema. Patient was given 10 mg IV diltiazem and started on diltiazem drip with improvement of heart rate to the 90s. Will discuss patient with hospitalist for admission. 18:59 - Heart rate improved with IV diltiazem to the 90s. Blood pressure 103/69. Repeat EKG demonstrates atrial fibrillation with possible right ventricular conduction delay. 19:11 - Discussed patient w
[2022-11-09] MEDS: MAGNESIUM SULF 2 GM/WATER 50ML 2 GM/50 ML BAG IVPB (16:12)
[2022-11-09] MEDS: CALCIUM GLUCONATE 1,000 MG/10 ML VIAL 1000 MG IV PUSH (16:15)
[2022-11-09 16:48] LABS: SPREG INTERNAL CONTROL Positive; Serum Qual hCG Negative
--- NOTE | 2022-11-09 16:58 | PC.NURSE ---
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
[2022-11-09] MEDS: MORPHINE SULFATE (*CRX) 4 MG/ML INJ IV PUSH (17:29)
[2022-11-09] MEDS: dilTIAZem 100 MG/100 ML 100 MG/100 ML BAG IV CONT (18:21)
[2022-11-09 18:27] LABS: NT Pro B Type Natriuretic Pept 533 pg/mL (19.9-100); Troponin I < 0.012 ng/mL (0.000-0.034)
[2022-11-09] MEDS: dilTIAZem HCl INJ 25 MG/5 ML VIAL 20 MG IV PUSH (18:36)
[2022-11-09 18:42] LABS: Add Urine Microscopic? NO; Appearance Urine Clear (Clear); Bilirubin Urine Negative (Negative); Blood Urine Negative (Negative); Color Urine Yellow (Yellow); Glucose Urine UA Negative (Negative); Ketones Urine Negative (Negative); Leukocyte Esterase Ur Negative LEU/UL (Negative); Nitrate Urine Negative (Negative); Protein Urine Negative (Negative); Specific Grav Ur 1.067 (1.001-1.035); Urobilinogen Urine 0.2 mg/dL (<2.0)
--- NOTE | 2022-11-09 18:47 | ECG_ITS ---
Measurements Intervals [place] Rate: 92 P: [place]: 0 QRS: 47 QRSD: 93 T: 24 QT: 346 QTc: 430 Interpretive Statements ATRIAL FIBRILLATION RSR' IN V1 OR V2, PROBABLY NORMAL VARIANT BORDERLINE T WAVE ABNORMALITY- ANTERIOR LEADS ABNORMAL ECG COMPARED TO ECG 11/09/2022 15:33:23 HEART RATE HAS DECREASED Electronically Signed On 11-09-2022 21:10:14 CDT by Aron Donahue D.O.
[2022-11-09] MEDS: SODIUM CHLORIDE 0.9% IV 1,000 ML 30 ML IV CONT (20:01)
--- NOTE | 2022-11-09 20:19 | PM.IMHP ---
H&P: HPI History of Present Illness Date/Time: 11/09/22 20:19 Chief Complaint: n/v Narrative: This is a 22 yo female with non significant PMHx presents to ED due to n/v/d, of one day duration, I arrived by EMS to emergency room and route she was found to have a heart rate of 170 patient was started on Cardizem drip after being given 3 L of normal saline it was noted that heart rate was sustained in the 160s to 170s. Patient denies any chest pain, no fevers ,no rigors, no chills. CT abdomen and pelvis was reported as: EXAMINATION: CT abdomen pelvis w con DATE: 11/09/2022 17:20 INDICATION: Right flank pain. Nausea and vomiting. TECHNIQUE: Computed tomography (CT) of the abdomen and pelvis was performed with 100 mL Omnipaque 350 intravenous contrast. Automated exposure control and iterative reconstruction technique were employed. The dose-length product was 778.27 mGy-cm. COMPARISON: None. FINDINGS: The visualized portions of the lung bases demonstrate mild atelectasis. No pleural effusion. The heart size is normal. No pericardial effusion. There is periportal edema in the liver. The gallbladder is normal in size. Gallbladder wall thickening is likely secondary to interstitial edema. The spleen, pancreas, adrenal glands, and kidneys are normal. There are no dilated loops of bowel. The appendix is normal. There are no pathologically enlarged lymph nodes. There is no free intraperitoneal fluid. There is mild lumbar spondylosis. IMPRESSION: 1. Periportal edema in the liver. 2. Gallbladder wall thickening, likely interstitial edema. Review of Systems Review of Systems: nausea, vomiting Constitutional: Constitutional: Denies chills, Denies fever(s), Denies night sweats and Reports weakness Eyes: Eyes: Denies change in vision ENT: Denies dysphagia and Denies odynophagia Cardiovascular: Cardiovascular: Denies chest pain, Denies leg edema, Reports lightheadedness, Denies radiating jaw, neck or arm pain, Reports palpitations and Denies dyspnea on exertion Respiratory: Respiratory: Denies chest congestion and Denies cough Gastrointestinal: Gastrointestinal: Denies abdominal pain, Denies dyspepsia, Denies heartburn, Reports diarrhea, Reports nausea and Reports vomiting Genitourinary: Genitourinary: Denies dysuria Musculoskeletal: Musculoskeletal: Denies back pain and Denies myalgias Integumentary/Breasts: Skin/Breast: Denies rash Neurologic: Denies focal weakness and Denies Sensory deficit (Neuro) Psychiatric: Psychiatric: Reports no additional psychiatric complaints and Reports as per HPI Endocrine: Endocrine: Denies cold intolerance, Denies heat intolerance and Reports palpitations Hematologic/Lymphatic: Hematologic/Lymphatic: Reports no additional hematologic/lymphatic complaints and Reports as per HPI Allergic/Immunologic: Allergic/Immunologic: Reports no additional allergic/immunologic complaints and Reports as per HPI PMFSH Past Medical History Medical History ADHD Pilonidal cyst Surgical History Surgical History History of knee surgery Social History Social History Smoking status: Never smoker Alcohol intake: current Drinks per week: 2 Substance use: never Lack of Transportation: No Lack of Food: Never True Current Housing: I Have Housing Concerned About Future Housing: No Difficulty Paying Gas/Electric Bills: No Difficulty Paying for Meds: No Currently Unemployed: No Education: Associate Degree Difficulty w/ Childcare or Family Care: No Gender identity (if verbalized by the patient): Female Spiritual care concerns: No Meds Home Medications and Allergies Home Medications Medication Instructions Recorded Confirmed Type lisdexamfetamine 30 mg capsule 30 mg PO DAILY 11/09/22 11/09/22 History (Mariangely
--- NOTE | 2022-11-09 22:44 | ADMGEN ---
This patient, Dena Rosario, was admitted to IMU Room 205-02. Patient/family oriented to hospital policies and general routines including ID bracelet, bed and alarms, visiting hours, pain management, procedures, bathroom and other care routines, personal items, smoking policy, room service/diet, and visiting hours. Information on how to activate the Rapid Response Team has been discussed. Patient/Family are encouraged to report perceived risks to care and to ask questions if they do not understand what they are told or what they should do.
[2022-11-10] VITALS (12 sets, daily range): BP systolic 111–123; BP diastolic 65–73; PULSE 58–91; RESP 18–21; TEMP 35.9–36.8; O2SAT 99–100
--- NOTE | 2022-11-10 | ECHO_ITS ---
Patient Info Name: Dena Rosario Age: 22 years : 2000 Gender: Female Ht: 73 in Wt: 201 lbs BSA: 2.18 m2 HR: 70 bpm BP: 114 / 69 mmHg Heart Rhythm: Sinus Rhythm Technical Quality: Good Exam Date: 11/10/2022 9:48 AM Exam Location: [facility] Patient Status: Inpatient Admit Date: 11/10/2022 Staff Ordering Physician: Millicent Gunn MD Way Inspector: Kallie Pradhan RDCS Attending Provider: Millicent Gunn MD Referring Physician: Luis A OROZCO; Exam Type: CA echo doppler color flow Study Info Indications - afib Complete two-dimensional, color flow and Doppler transthoracic echocardiogram is performed. Summary 1. Complete two-dimensional, color flow and Doppler transthoracic echocardiogram is performed. 2. Left ventricular chamber dimension is normal. 3. Left ventricular systolic function is normal, estimated at 60-65%. 4. Right ventricular systolic function is normal. 5. Left atrial chamber dimension is mildly enlarged. 6. Right atrial chamber dimension is mildly enlarged. 7. There is mild mitral valve regurgitation. 8. There is moderate tricuspid valve regurgitation. 9. Estimated pulmonary arterial systolic pressure is 42 mmHg. Left Ventricle Left ventricular chamber dimension is normal. Left ventricular systolic function is normal, estimated at 60-65%. There is no increased left ventricular wall thickness. The left ventricular diastolic function is normal. Right Ventricle Right ventricular chamber dimension is normal. Right ventricular systolic function is normal. Left Atria Left atrial chamber dimension is mildly enlarged. Right Atria Right atrial chamber dimension is mildly enlarged. Atrial Septum Intact interatrial septum visualized by color flow imaging. Aortic Valve The aortic valve is trileaflet. There is no aortic valve stenosis. There is trace aortic valve regurgitation. Pulmonic Valve The pulmonic valve is not well visualized. Mitral Valve There is mild mitral valve regurgitation. Tricuspid Valve There is moderate tricuspid valve regurgitation. Estimated pulmonary arterial systolic pressure is 42 mmHg. Pericardium/Pleural There is no pericardial effusion. Inferior Vena Cava Dilated inferior vena cava with <50% collapse upon inspiration consistent with elevated right atrial pressure, 15 mmHg. Aorta The aortic root size at the sinus of Valsalva is normal. Left Ventricular Outflow Tract Name Value Normal LVOT 2D LVOT Diameter 2.0 cm LVOT Doppler LVOT Peak Gradient 3 mmHg LVOT Mean Gradient 2 mmHg LVOT VTI 18 cm LVOT VTI/AV VTI Ratio 0.7 LVOT Stroke Volume 59 ml LVOT CO 3.6 l/min LVOT CI 1.6 l/min/m2 Pulmonic Valve Name Value Normal RVOT Doppler RVOT Peak Gradient
[2022-11-10 05:03] LABS: Basophils Percent Auto 0.4 % (0.2-1.2); Eosinophils Absolute Auto 0.1 K/mm3 (0-0.3); Eosinophils Percent Auto 0.8 % (0-4.4); Hematocrit 35.9 % (37.0-47.0); Hemoglobin 11.2 g/dL (12.0-15.0); Immature Granulocyte Absolute 0.02 K/mm3 (0.00-0.031); Immature Granulocyte Percent A 0.3 % (0-0.5); Lymphocytes Absolute Auto 3.52 K/mm3 (0.9-3.2); Lymphocytes Percent Auto 45.3 % (18.3-44.2); Mean Corpuscular HGB Conc 31.2 g/dl (32-36); Mean Corpuscular Hemoglobin 30.3 pg (26-34); Mean Platelet Volume 10.2 fl (7.4-10.4); Monocytes Absolute Auto 0.4 K/mm3 (0.1-0.6); Monocytes Percent Auto 5.7 % (2.6-8.5); Neutrophils Absolute Auto 3.7 K/mm3 (1.3-6.7); Neutrophils Percent Auto 47.5 % (45.5-73.1); Platelet Count Result 212 k/mm3 (150-375); White Blood Count 7.8 K/mm3 (4.5-10.0)
[2022-11-10 05:13] LABS: Anion Gap 3 mmol/L (8-16); Blood Urea Nitrogen 9 mg/dL (7-17); Calcium 8.4 mg/dL (8.4-10.2); Carbon Dioxide 27 mmol/L (22-30); Chloride 106 mmol/L (98-107); Estimated CRCL calculation 123 ml/min; Estimated Glomerular Filt Rate > 60; Glucose 89 mg/dL (65-110); Potassium 3.7 mmol/L (3.4-5.0); Sodium 136 mmol/L (137-145)
[2022-11-10] MEDS: ONDANSETRON HCL ODT 4 MG TABLET PO (09:44)
[2022-11-10] MEDS: HYDROcodone/acetaminophen (*CRX) 5-325 MG TABLET 1 TAB PO (09:45)
--- NOTE | 2022-11-10 11:22 | PM.CNCAR ---
Assessment and Plan Assessment and plan (1) Atrial fibrillation with RVR: Code(s): I48.91 - Unspecified atrial fibrillation <JARETH Romo - Last Filed: 11/10/22 13:49> Status: Acute <JARETH Romo - Last Filed: 11/10/22 13:49> Assessment and Plan: New diagnosis of atrial fibrillation with RVR in the setting of vomiting, diarrhea, and likely dehydration, though it sounds like she may have had some arrhythmias in the past. She has converted to sinus rhythm at this point. Check echo Check TSH [id number] score is 1 - anticoagulation is not indicated No plan for any rate/rhythm controlling medication for now Continue to monitor on telemetry Can consider outpatient plywood and veneer repairer Will follow up with echo results Can downgrade from IMU to med/tele <JARETH Romo - Last Filed: 11/10/22 13:49> Assessment and Plan: Cardiology attendin-year-old female admitted with nausea vomiting, diarrhea and found to have AFib RVR. Initial rhythm read by EMS as SVT rate 170 although these rhythm strips are not available for my review. She was given Adenocard 12 mg IV push in the ER and reportedly showed P-waves but did not conver and these rhythm strips are not available. Has converted to sinus rhythm after IV metoprolol, and IV diltiazem 5 milligrams/hour.. Concern for gallbladder disease on this admission. Patient has a history of fast heartbeats when she is playing basketball or if she is scared, sometimes associated with dizziness and passing out and having seizure-like activity although she reports she can not hear her surroundings. She has been diagnosis having syncope and panic attacks in the past as well as seizures. Physical exam: Blood pressure 123/73 pulse 66. Well-developed well-nourished young female in no distress heart is regular rate and rhythm, no murmurs, lungs clear, abdomen soft, no edema. Impression: 1. Atrial fibrillation: Associated with an acute illness. I wonder she had SVT that later degenerated in to AFib as primary AFib is very uncommon rhythm for a 22-year-old. Any case, I agree with BANANA HANDLER Neli Trujillo's assessment and plan: No need for anticoagulation or long-term therapy. 2. History of syncope and palpitations, diagnosed as having syncope, panic attacks, and seizures in the past. Wonder she may be having episodic SVT. Infrequent episodes. 11/09/2022 EKG at 3:33 p.m.: AFib RVR rate 156, minor nonspecific T-wave changes. 11/10/2022 EKG at 12:48 p.m.: NSR rate 77, no ischemia, minimal nonspecific T wave changes EKGs were personally reviewed TSH normal Chest x-ray unremarkable Plan: Echo pending Agree with BANANA HANDLER Neli Trujillo's assessment and plan If patient has recurrent syncopal episodes are recurrent palpitations, follow-up with us In addition to Kady Trujillo NP's evaluation, I spent a substantive amount of time, 25 additional minutes, in my own assessment, review of the record, discussion of recommendations, and plan for the patient. Isha Casarez MD <Cami Casarez MD - Last Filed: 11/10/22 15:45> History of Present Illness History of Present Illness Consult date/time: 11/10/22 11:22 <JARETH Romo - Last Filed: 11/10/22 13:49> Requesting physician: Alethea Argueta MD <JARETH Romo - Last Filed: 11/10/22 13:49> Consult reason: atrial fibrillation <JARETH Romo - Last Filed: 11/10/22 13:49> Reason For Visit: afib rvr <JARETH Romo - Last Filed: 11/10/22 13:49> Narrative: Dena Rosario is a 22 year old female with a history of seizures who presents to the emergency department with complaints of nausea, vomiting, and diarrhea. Symptoms started yesterday morning around 8:00 a.m. Patient states when EMS placed her on plywood and veneer repairer she was in rapid atrial fibrillation. Her initial EKG in the emergency department did show atrial fibrillation with rapid ventricular response
--- NOTE | 2022-11-10 12:32 | ECG_ITS ---
Measurements Intervals [place] Rate: 77 P: 52 [place]: 137 QRS: 29 QRSD: 98 T: 10 QT: 380 QTc: 430 Interpretive Statements SINUS RHYTHM WITH SINUS ARRHYTHMIA NONSPECIFIC T-WAVE ABNORMALITY- ANT/INF LEADS BASELINE WANDER- V4 BORDERLINE ECG COMPARED TO ECG 11/09/2022 18:52:50 SINUS RHYTHM NOW PRESENT SINUS ARRHYTHMIA NOW PRESENT Electronically Signed On 11-10-2022 13:04:05 CDT by Aron Donahue D.O.
--- NOTE | 2022-11-10 14:15 | PM.IMPN ---
Progress Note: A&P Assessment and Plan (1) Nausea & vomiting: Qualifiers: Vomiting type: unspecified Qualified Code(s): R11.2 - Nausea with vomiting, unspecified Code(s): R11.2 - Nausea with vomiting, unspecified Status: Acute Assessment and Plan: [facility] surgery consult for thickened gb (2) Atrial fibrillation with RVR: Code(s): I48.91 - Unspecified atrial fibrillation Status: Acute Assessment and Plan: pt off drip ?T4 and TSH pending ?echocardiogram in a.m. pt seen by cardiology af likely secondary to nausea/ vomiting Subjective Date/time seen: 11/10/22 14:15 Interval history: 22 yo female with non significant PMHx presents to ED due to n/v/d, of one day duration,? I arrived by EMS to emergency room and route she was found to have a heart rate of 170 patient was started on Cardizem drip after being given? 3 L of normal saline it was noted that heart rate was sustained in the 160s to 170s.? Pt currently in NSR, pt to have echocardiogram and telemetry monitoring overnite hopeful dc erlinda am Ct scan shows - . Periportal edema in the liver. 2. Gallbladder wall thickening, likely interstitial edema. USBG shows - Gallbladder wall thickening, likely interstitial edema. Review of Systems Review of Systems: nausea and vomiting Constitutional: Comments: tiredness Objective Data Vital Signs Vital Signs: Vital Signs - 24 hr 11/09/22 15:44 11/09/22 16:05 11/09/22 16:07 Temperature 36.9 C Pulse Rate 156 H 162 H 159 H Respiratory Rate 17 Blood Pressure 113/74 Pulse Oximetry 100 Oxygen Delivery Room Air 11/09/22 16:34 11/09/22 18:00 11/09/22 18:21 Temperature Pulse Rate 133 H 145 H 133 H Respiratory Rate 22 H Blood Pressure 117/83 99/82 L Pulse Oximetry 98 Oxygen Delivery 11/09/22 15:53 11/09/22 15:58 11/09/22 16:00 Temperature Pulse Rate 152 H 170 H 159 H Respiratory Rate 12 17 23 H Blood Pressure 106/61 Pulse Oximetry 100 100 Oxygen Delivery 11/09/22 16:01 11/09/22 16:04 11/09/22 16:06 Temperature Pulse Rate 158 H 161 H 141 H Respiratory Rate 12 13 20 Blood Pressure 128/117 H 111/91 H 102/74 Pulse Oximetry 100 96 Oxygen Delivery 11/09/22 16:09 11/09/22 16:14 11/09/22 16:15 Temperature Pulse Rate 141 H 143 H 142 H Respiratory Rate 14 18 17 Blood Pressure 110/75 113/85 Pulse Oximetry 100 Oxygen Delivery 11/09/22 16:16 11/09/22 16:30 11/09/22 16:31 Temperature Pulse Rate 148 H 123 H 143 H Respiratory Rate 12 16 24 H Blood Pressure 119/95 H 117/83 Pulse Oximetry 100 100 Oxygen Delivery 11/09/22 16:45 11/09/22 16:46 11/09/22 17:17 Temperature Pulse Rate 137 H 143 H 139 H Respiratory Rate 18 18 Blood Pressure 114/87 Pulse Oximetry Oxygen Delivery 11/09/22 17:25 11/09/22 17:30 11/09/22 17:31 Temperature Pulse Rate 152 H 139 H 128 H Respiratory Rate 15 25 H 20 Blood Pressure 115/70 107/83 Pulse Oximetry 100 Oxygen Delivery 11/09/22 17:36 11/09/22 17:45 11/09/22 17:46 Temperature Pulse Rate 140 H 142 H 152 H Respiratory Rate 20 26 H 19 Blood Pressure 100/58 L 90/71 L Pulse Oximetry 100 Oxygen Delivery 11/09/22 17:57 11/09/22 17:59 11/09/22 18:00 Temperature Pulse Rate 149 H 149 H 144 H Respiratory Rate 13 21 H 24 H Blood Pressure 82/62 L 89/68 L Pulse Oximetry 99 100 Oxygen Delivery 11/09/22 18:01 11/09/22 18:15 11/09/22 18:16 Temperature Pulse Rate 154 H 132 H 138 H Respiratory Rate 18 6 L Blood Pressure 100/85 99/82 L Pulse Oximetry 100 100 Oxygen Delivery 11/09/22 18:33 11/09/22 18:35 11/09/22 18:40 Temperature Pulse Rate 139 H 144 H 148 H Respiratory Rate 16 22 H Blood Pressure 98/52 L 95/72 L Pulse Oximetry 100 100 Oxygen Delivery 11/09/22 18:43 11/09/22 18:45 11/09/22 18:51 Temperature Pulse Rate 107 H 98 86 Respiratory Rate 17 16
--- NOTE | 2022-11-10 18:45 | PM.DS ---
DS: Admitting Diagnosis Discharge Date 11/10/2022 Admitting Diagnosis nausea and vomiting DS: Summary Hospital Course Hospital Course: 22 yo female with non significant PMHx presents to ED due to n/v/d, of one day duration,? I arrived by EMS to emergency room and route she was found to have a heart rate of 170 patient was started on Cardizem drip after being given? 3 L of normal saline it was noted that heart rate was sustained in the 160s to 170s.?Patient had echo and tsh. Pt seen by cardiology ok to dc from there point of view. [id number] score is 1 - anticoagulation is not indicated No plan for any rate/rhythm controlling medication for now Ct scan shows -?. Periportal edema in the liver. 2. Gallbladder wall thickening, likely interstitial edema. USBG shows - Gallbladder wall thickening, likely interstitial edema.pt can follow later in surgery clinic if nausea persists for GB thickening Time Spent with Patient Time attestation: Total time spent providing and/or coordinating discharge services:40 minutes on day of DC Exam Narrative: Lying in stretcher Const: General: comfortable, no acute distress, well developed, alert, awake and average body habitus Nutritional Appearance: average body habitus Orientation/consciousness: patient oriented x3 HENMT: Head: normal to inspection, normocephalic and atraumatic Ears: hearing grossly normal bilaterally Face/Nose/Sinus: normal facial exam Face and sinus: normal facial exam Eyes: General: appearance normal, both eyes and all related structures Pupils: Equal, round and reactive pupils present EOM: EOMs intact bilaterally Neck: Neck: full ROM, no lymphadenopathy and no JVD Thyroid: thyroid normal Lymphatic: no lymphadenopathy noted Resp: Effort & Inspection: normal respiratory effort and able to speak in complete sentences Auscultation: clear to auscultation bilaterally Cardio: Jugular venous distension: no JVD Rate: regular rate Rhythm: regular rhythm Heart sounds: S1 normal heart sound present and S2 normal heart sound present : General: Yes deferred Skin: Rashes: no rashes Wounds: no wounds Neuro: General: patient oriented x3 and CN's II-XI intact bilaterally Cranial nerves: Yes CN's II-XII intact bilaterally and Yes Equal, round and reactive pupils present Cognition (Neuro): normal cognition Speech: normal speech Gait exam (Neuro): Normal gait present Motor exam (neuro): 5/5 motor strength present throughout Sensory Exam: No Sensory deficit (Neuro) Extrem: General: normal to inspection, full ROM, no joint enlargement and no pedal edema DS: Data Data Completed and Pending Labs on day of discharge: Labs from last 24 hours 11/10/22 11/09/22 11/09/22 04:34 18:34 15:40 WBC 7.8 RBC 3.70 L Hgb 11.2 L Hct 35.9 L MCV 97.0 MCH 30.3 MCHC 31.2 L RDW 13.0 Plt Count 212 MPV 10.2 Immature Gran % (Auto) 0.3 Neut % (Auto) 47.5 Lymph % (Auto) 45.3 H [place] % (Auto) 5.7 Eos % (Auto) 0.8 Baso % (Auto) 0.4 Lymph # (Auto) 3.52 H [place] # (Auto) 0.4 Eos # (Auto) 0.1 Baso # (Auto) 0.0 Abs Immat Gran (auto) 0.02 Absolute Neuts (auto) 3.7 Absolute Nucleated RBC 0.0 Nucleated RBC % 0.0 Sodium 136 L Potassium 3.7 Chloride 106 Carbon Dioxide 27 Anion Gap 3 L BUN 9 Creatinine 0.70 Estim Creat Clear Calc 123 Estimated GFR > 60 Glucose 89 Calcium 8.4 Troponin I < 0.012 NT-Pro-B Natriuret Pep 533 H TSH 1.040 Urine Color Yellow Urine Appearance Clear Urine pH 7.0 Ur Specific [place] 1.067 H Urine Protein Negative Urine Glucose (UA) Negative Urine Ketones Negative Ur Blood (Man) Negative Urine Nitrate Negative Urine Bilirubin Negative Urine Urobilinogen 0.2 Leukocyte Esterase Rfl Negative Discharge Plan Discharge Attending physician on discharge: Alethea Argueta Consulting providers: Sean Hernandez
== END 2022-11-10 19:39 | disposition home or self-care (01) | DRG 310 ==
LOC: ANHED 19:13 → ANHIMU 22:14
PROVIDERS: Nurse Practitioner; Admitting Provider Internal Medicine; Emergency Provider Preventive Medicine Aerospace Medicine; Visit Provider Family Medicine
DX: I48.91 Unspecified atrial fibrillation (principal); F90.9 Attention-deficit hyperactivity disorder, unspecified type; E86.0 Dehydration; R11.2 Nausea with vomiting, unspecified
CPT/HCPCS: 36415; 71045; 74177; 76705; 80048; 80053; 81003; 83735; 83880; 84443; 84484; 84703; 85025; 93005; 93306; 96361; 96365; 96366; 96367; 96375; 99285; A9270; G0378; G0379; J0153; J0612; J2270; J3475; J7030; Q9967